=== PATIENT | male | born 1990 | race Caucasian/White ===

== ENCOUNTER 2018-05-21 23:06 | Emergency (ER) | payer BC ==
[~2018-05-21] VITALS: Ht 185.4 cm; Wt 54.4 kg
[2018-05-21] MEDS ORDERED: TRUVADA 200 MG1 EAC1 ORAL (23:27)
[2018-05-21 23:30] VITALS: BP 127/66
[2018-05-22] MEDS ORDERED: Norco 5mg/325mg tab ORAL ONE
[2018-05-22] MEDS ORDERED: AMOXICILLIN500 MG ORAL (00:03)
[2018-05-22] MEDS ORDERED: HYDROCODON-ACE1 EA15 ORAL (00:03)
[2018-05-22] MEDS ORDERED: IBUPROFEN600 MG ORAL (00:03)
--- NOTE | 2018-05-22 00:03 | Emergency Room Report ---
History of Present Illness General Chief Complaint: Pain Source: Patient Present Illness HPI Is a 28-year-old male with no past medical history. He presents with chief complaint of dental pain. He was eating and felt sharp pain it was acute onset area. Occurred a few hours ago. Pain is to the left upper jaw and radiate laterally. No swelling. No fever chills but no nausea no vomiting. Pain is 10 out of 10. No relief with [id number] medication. Worse with eating and drinking. Allergies: Coded Allergies: No Known Allergies (Unverified , 05/21/18) Patient History Past Medical History: see triage record, old chart reviewed Past Surgical History: none Pertinent Family History: none Social History: Denies: smoking Immunizations: other Reviewed Nursing Documentation: PMH: Agreed; PSxH: Agreed Nursing Documentation-PM Past Medical History: No Stated History Review of Systems Eye: Denies: eye pain, blurred vision ENT: Denies: ear pain, nose congestion, throat swelling Respiratory: Denies: cough, shortness of breath Cardiovascular: Denies: chest pain, palpitations Gastrointestinal: Denies: abdominal pain, diarrhea, nausea, vomiting Musculoskeletal: Denies: back pain, joint pain Skin: Denies: rash Neurological: Denies: headache, numbness Endocrine: Denies: increased thirst, increased urine Hematologic/Lymphatic: Denies: easy bruising All Other Systems: negative except mentioned in HPI Physical Exam Vital Signs Date Time Temp Pulse Resp B/P (MAP) Pulse Ox O2 Delivery O2 Flow Rate FiO2 05/21/18 23:22 98.1 76 15 127/66 99 Room Air vitals normal Sp02 EP Interpretation: reviewed, normal General Appearance: well appearing, no apparent distress, alert Head: normocephalic, atraumatic Eyes: bilateral eye PERRL, bilateral eye EOMI ENT: hearing grossly normal, normal pharynx, other - Oropharynx: He has a decayed tender left upper wisdom tooth. No abscess seen. He also has percussive tenderness over the left first and second premolar. No abscess seen. Neck: full range of motion, supple, no meningismus Respiratory: chest non-tender, lungs clear, normal breath sounds Cardiovascular #1: regular rate, rhythm, no murmur Gastrointestinal: normal bowel sounds, non tender, no mass, no organomegaly, no bruit, non-distended Musculoskeletal: back normal, gait/station normal, normal range of motion Psychiatric: mood/affect normal Skin: warm/dry Medical Decision Making Diagnostic Impression: Primary Impression: Pain, dental ER Course Patient with dental pain. No evidence of any abscess. This may be a nerve root problem. He may need a root canal. We'll need to see a dentist JESSICA. Last Vital Signs Date Time Temp Pulse Resp B/P (MAP) Pulse Ox O2 Delivery O2 Flow Rate FiO2 05/21/18 23:22 98.1 76 15 127/66 99 Room Air Status: improved Disposition: HOME, SELF-CARE Condition: Stable Scripts Ibuprofen* (MOTRIN*) 600 Mg Tablet 600 MG ORAL THREE TIMES A DAY, #30 TAB 0 Refills Prov: Clinton De Leon MD 05/22/18 Hydrocodone/Acetaminophen 5-325* (HYDROCODONE/ACETAMINOPHEN 5-325*) 1 Each Tablet 1 TAB ORAL Q6H PRN for For Pain, #15 TAB 0 Refills Prov: Clinton De Leon MD 05/22/18 Amoxicillin* (AMOXIL*) 500 Mg Capsule 500 MG ORAL THREE TIMES A DAY, #21 CAP Prov: Clinton De Leon MD 05/22/18 Additional Instructions: Follow-up with dentist JESSICA. Return if symptom worsen. Clinton De Leon MD May 22, 2018 00:03
[2018-05-22 00:08] VITALS: BP 127/66
== END 2018-05-22 00:08 | disposition home or self-care (01) ==
LOC: EMR 23:59
DX: K08.89 Other specified disorders of teeth and supporting structures (principal)
CPT/HCPCS: 99283

== ENCOUNTER 2018-05-28 22:08 | Emergency (ER) | payer BC ==
[~2018-05-28] VITALS: Ht 185.4 cm; Wt 54.4 kg
[~2018-05-28 22:08] MED LIST: AMOXICILLIN500 MG ORAL; HYDROCODON-ACE1 EA15 ORAL; IBUPROFEN600 MG ORAL; TRUVADA 200 MG1 EAC1 ORAL
[2018-05-28 22:28] VITALS: BP 106/63
--- NOTE | 2018-05-28 22:30 | NUR ---
ED Nurse Note: Pt arrived ED from home. C/o right hand of Thumb was injuried with very small cut. Dr. De Leon at bed side. waitng for orders.
--- NOTE | 2018-05-28 22:43 | Emergency Room Report ---
History of Present Illness General Chief Complaint: Laceration Source: Patient Present Illness HPI Is a 28-year-old male who is a 10 dominant. He presents with a laceration to his right thumb. He was preparing dinner in watching TV at the same time. He ended up stabbing himself the tip of his right thumb. Onset was acute and occurred about an hour prior to arrival. Because it would not stop bleeding he was concerning came in. Tetanus is up-to-date. Minimal pain. No other complaint. Allergies: Coded Allergies: No Known Allergies (Unverified , 05/21/18) Patient History Past Medical History: see triage record, old chart reviewed Past Surgical History: none Pertinent Family History: none Social History: Denies: smoking Immunizations: other Reviewed Nursing Documentation: PMH: Agreed; PSxH: Agreed Nursing Documentation-PMH Past Medical History: No Stated History Review of Systems Eye: Denies: eye pain, blurred vision ENT: Denies: ear pain, nose congestion, throat swelling Respiratory: Denies: cough, shortness of breath Cardiovascular: Denies: chest pain, palpitations Gastrointestinal: Denies: abdominal pain, diarrhea, nausea, vomiting Musculoskeletal: Denies: back pain, joint pain Skin: Denies: rash Neurological: Denies: headache, numbness Endocrine: Denies: increased thirst, increased urine Hematologic/Lymphatic: Denies: easy bruising All Other Systems: negative except mentioned in HPI Physical Exam Vital Signs Date Time Temp Pulse Resp B/P (MAP) Pulse Ox O2 Delivery O2 Flow Rate FiO2 05/28/18 22:12 98.1 72 16 108/65 93 Room Air vitals normal Sp02 EP Interpretation: reviewed, normal General Appearance: well appearing, no apparent distress, alert Head: normocephalic, atraumatic Eyes: bilateral eye PERRL, bilateral eye EOMI ENT: hearing grossly normal, normal pharynx Neck: full range of motion, supple, no meningismus Respiratory: chest non-tender, lungs clear, normal breath sounds Cardiovascular #1: regular rate, rhythm, no murmur Gastrointestinal: normal bowel sounds, non tender, no mass, no organomegaly, no bruit, non-distended Musculoskeletal: back normal, gait/station normal, normal range of motion, other - Right thumb: He has a 3 mm laceration at the tip of his thumb just underneath the nail. No foreign body. Full range of motion of the DIP joint. Psychiatric: mood/affect normal Skin: warm/dry Procedures Laceration/Wound Repair Laceration/Wound Repair : Consent: Verbal Wound Location: upper extremity Wound's Depth, Shape: superficial Wound Length (cm): 1 Wound Explored: clean Irrigated w/ Saline (ccs): 1000 Patient Tolerated: Well Complications: None Progress I placed Steri-Strips around the wound and then applied adhesive glue to it. Patient tolerated procedure without a problem. Medical Decision Making Diagnostic Impression: Primary Impression: Laceration ER Course Patient with superficial laceration to the thumb. No foreign body. No tendon laceration. Low risk for infection. Last Vital Signs Date Time Temp Pulse Resp B/P (MAP) Pulse Ox O2 Delivery O2 Flow Rate FiO2 05/28/18 22:12 98.1 72 16 108/65 93 Room Air Status: improved Disposition: HOME, SELF-CARE Referrals: NOT CHOSEN IPA/,REFERRING (PCP) Additional Instructions: Keep wound clean. Follow-up with your doctor in 7 days. Return if worse. Clinton De Leon MD May 28, 2018 22:43
[2018-05-28 22:52] VITALS: BP 107/62
--- NOTE | 2018-05-28 22:52 | NUR ---
ED Nurse Note: Pt has seen by Dr. De Leon and suture was done by Dr. De Leon . D/c instruction given to Pt and verbalized understanding. ID band removed. Pt d/c from ED with steady gait with all his belongings.
== END 2018-05-28 22:52 | disposition home or self-care (01) ==
LOC: EMR 22:25
DX: S61.011A Laceration without foreign body of right thumb without damage to nail, initial encounter (principal); W45.8XXA Other foreign body or object entering through skin, initial encounter; Y92.89 Other specified places as the place of occurrence of the external cause
CPT/HCPCS: 99282